=== PATIENT | female | born 1985 | race Two or more races ===

== ENCOUNTER 2019-01-22 05:54 | Emergency (ER) | payer OTHER ==
[~2019-01-22] VITALS: Ht 152.4 cm; Wt 63.5 kg
--- NOTE | 2019-01-22 06:03 | NUR ---
PT BIB BF C/O VAGINAL BLEED AND CRAMPING "I SAW LIKE A GESTATIONAL SAC" PT IS AAOX4, NOT IN RESPIRATORY DISTRESS, HOOKED TO MONITOR, KEPT RESTED AND COMFORTABLE, WILL CONTINUE TO MONITOR.
--- NOTE | 2019-01-22 06:09 | NUR ---
SEEN AND EXAMINED BY .
--- NOTE | 2019-01-22 06:13 | NUR ---
PHLEB AT BEDSIDE FOR BLOOD DRAW
--- NOTE | 2019-01-22 06:15 | NUR ---
ER PHLEB AT BEDSIDE FOR BLOOD DRAW.
[2019-01-22 06:26] LABS: BASOPHILS % (AUTO) 0.7 % (0.0-2.0); EOSINOPHILS % (AUTO) 4.6 % (0.0-6.0); HEMATOCRIT 37 % (33-45); HEMOGLOBIN 12.3 g/dL (11.5-14.8); LYMPHOCYTES # (AUTO) 1.5 /CMM (0.8-4.8); MEAN CORPUSCULAR HGB CONC 34 g/dl (31.0-36.0); MEAN CORPUSCULAR VOLUME 87 fL (82-100); MONOCYTES # (AUTO) 0.4 /CMM (0.1-1.30); MONOCYTES % (AUTO) 5.5 % (2.0-12.0); NEUTROPHILS # (AUTO) 4.3 /CMM (1.8-8.9); NEUTROPHILS % (AUTO) 66.2 % (43.0-81.0); PLATELET COUNT (AUTO) 296 /CMM (150-450); RED BLOOD CELL COUNT(AUTO) 4.18 MIL/uL (4.0-5.2); WHITE BLOOD COUNT (AUTO) 6.5 K/uL (4.3-11.0)
[2019-01-22 06:31] LABS: CALCIUM, SERUM 8.4 mg/dL (8.5-10.1); CREATININE 0.5 mg/dL (0.6-1.3); POTASSIUM 3.8 mmol/L (3.5-5.1)
--- NOTE | 2019-01-22 07:00 | NUR ---
TECH AT BEDSIDE FOR US.
[2019-01-22 07:50] VITALS: BP 135/85
--- NOTE | 2019-01-22 08:01 | NUR ---
Patient discharged to home in stable condition. Written and verbal after care instructions given. Patient verbalizes understanding of instruction.
== END 2019-01-22 08:05 | disposition home or self-care (01) ==
LOC: ER 05:55
DX: O20.9 Hemorrhage in early pregnancy, unspecified (principal); O99.341 Other mental disorders complicating pregnancy, first trimester; J45.909 Unspecified asthma, uncomplicated; F32.9 Major depressive disorder, single episode, unspecified; Z3A.01 Less than 8 weeks gestation of pregnancy
CPT/HCPCS: 36415; 76805-TC; 80048-TC; 84702-TC; 85025-TC; 86850-TC